=== PATIENT | female | born 1935 | race Caucasian/White ===

== ENCOUNTER 2019-03-13 11:56 | Outpatient (CLI) | payer MEDICARE ==
[~2019-03-13] VITALS: Ht 152.4 cm; Wt 56.2 kg
[2019-03-13 12:07] VITALS: BP 121/53
[2019-03-13 12:36] LABS: BASOPHILS % (AUTO) 1 % (0-10); EOSINOPHILS # (AUTO) 0.2 10^3/uL (0.0-0.3); EOSINOPHILS % (AUTO) 3 % (0-10); HEMATOCRIT 33 % (35-52); HEMOGLOBIN 10.7 G/DL (11.5-16.0); LYMPHOCYTES # (AUTO) 1.9 X 10^3 (1.0-4.0); LYMPHOCYTES % (AUTO) 36 % (12-44); MEAN CORPUSCULAR HEMOGLOBIN 34 PG (25-34); MEAN CORPUSCULAR HGB CONC 33 G/DL (32-36); MEAN CORPUSCULAR VOLUME 102 FL (80-99); MEAN PLATELET VOLUME 9.9 FL (7.4-10.4); MONOCYTES # (AUTO) 0.3 X 10^3 (0.0-1.0); MONOCYTES % (AUTO) 7 % (0-12); NEUTROPHILS # (AUTO) 2.8 X 10^3 (1.8-7.8); NEUTROPHILS % (AUTO) 54 % (42-75); PLATELET COUNT 206 10^3/uL (130-400); RED CELL DISTRIBUTION WIDTH 13.1 % (10.0-14.5); WHITE BLOOD COUNT 5.2 10^3/uL (4.3-11.0)
[2019-03-13] MEDS ORDERED: LEVO50TA6 PO (12:39)
[2019-03-13] MEDS ORDERED: OMEP20CA13 PO (12:39)
[2019-03-13] MEDS ORDERED: ASPI-586 PO (12:39)
[2019-03-13] MEDS ORDERED: FERR325T18 PO (12:39)
[2019-03-13] MEDS ORDERED: AMLO5TAB9 PO (12:39)
[2019-03-13] MEDS ORDERED: METO-333 PO (12:39)
[2019-03-13] MEDS ORDERED: CITA40TA11 PO (12:39)
[2019-03-13] MEDS ORDERED: ATOR10TA66 PO (12:39)
[2019-03-13 12:58] LABS: CALCIUM 9.3 MG/DL (8.5-10.1); CREATININE SERUM 1.4 MG/DL (0.60-1.30); POTASSIUM 4.5 MMOL/L (3.6-5.0)
== END 2019-03-13 12:30 | disposition home or self-care (01) ==
LOC: PREOP 11:56
PROVIDERS: ATTEND Otolaryngology Otolaryngology/Facial Plastic Surgery
DX: Z01.818 Encounter for other preprocedural examination (principal); C44.91 Basal cell carcinoma of skin, unspecified
CPT/HCPCS: 36415; 80048; 85025; 87081; 93005

== ENCOUNTER → 2020-11-26 | Outpatient (CLI) | payer MEDICARE ==
[~2020-11-26] MED LIST: AMLO-250 PO; ASPI-586 PO; ATOR10TA66 PO; CITA40TA11 PO; FERR325T18 PO; LEVO50TA6 PO; METO-333 PO; OMEP20CA18 PO
--- NOTE | 2020-11-26 18:05 | Diagnostic Imaging Report ---
EXAM: LUMBAR SPINE 2 OR 3 VIEW INDICATION: Chronic low back pain. COMPARISON: None. FINDINGS: There are 5 lumbar-type vertebral bodies. Grade 1 anterolisthesis of L5 on S1. Vertebral body heights preserved. Mild scattered degenerative endplate changes and facet arthropathy. No fractures are identified. The visualized pelvis is intact. Nonspecific bowel gas pattern in the [id number]. IMPRESSION: 1. Mild spondylotic changes are greatest at L5-S1 where there is grade 1 anterolisthesis. 2. No acute radiographic findings in the lumbar spine. Dictated by: Dictated on workstation # [id number]
== END ==
LOC: RAD FS 15:24
PROVIDERS: ATTEND Nurse Practitioner Family
DX: M51.37 Other intervertebral disc degeneration, lumbosacral region (principal); M43.17 Spondylolisthesis, lumbosacral region
CPT/HCPCS: 72100

== ENCOUNTER → 2021-04-24 | Outpatient (CLI) | payer MEDICARE ==
[~2021-04-24] MED LIST changes: +CATHETER FLUSH 10 ML SYR IV PRN; +REGADENOSON 0.4 MG/5 ML SYR (LEXISCAN) IV ONE
[2021-04-24 13:26] VITALS: BP 181/59
--- NOTE | 2021-04-24 17:04 | NUCLEAR STRESS TEST ---
TREADMILL NUCLEAR STRESS TEST Date of procedure: 04/24/2021. Primary care provider: Naya Madison APRN. Admitting physician: Dante Gay Jr., MD. INDICATION: Coronary artery disease. BASELINE ELECTROCARDIOGRAM: Sinus rhythm with nonspecific intraventricular conduction delay and inferolateral ST-T wave changes, consider ischemia STRESS TEST PROCEDURE: The patient was exercised for a total of 2 minutes and 25 seconds of the standard Jarrett protocol achieving a maximum MET level of 3.6. The resting heart rate was 72 bpm and the peak heart rate was 125 bpm, which represents 91% of the maximum predicted heart rate. The resting blood pressure was 200/91 mmHg and the peak blood pressure was 238/71 mmHg. This represents a normal heart rate and a hypertensive blood pressure response to exercise with resting hypertension. The test was stopped due to target heart rate achieved. There was no chest discomfort during the test. There were no arrhythmias during the test. The stress electrocardiogram was indeterminate due to the baseline abnormalities. The patient exhibited good exercise capacity for age. NUCLEAR PROCEDURE: The patient was administered 10.6 mCi of intravenous technetium 99m Tetrofosmin at rest for the rest images. The patient was subsequently administered 32 point mCi of intravenous technetium 99 M Tetrofosmin at peak stress for the stress images. Following an appropriate wait after each injection, imaging was obtained. The images were subsequently processed and reformatted in the usual views. Gated imaging was obtained. The image quality was adequate but with some gastrointestinal and motion artifacts. CT attenuation correction was used as a adjunct to standard imaging. Both the corrected and uncorrected images were reviewed for interpretation. NUCLEAR RESULTS: There was normal myocardial perfusion in all segments without evidence of infarction or ischemia. There was normal left ventricular chamber size with an end-diastolic volume of 21 mL and an end-systolic volume of 5 mL. There was no evidence of transient ischemic dilatation. The TID ratio was 1.03. There was normal wall motion in all segments with a calculated ejection fraction of 75%. IMPRESSION: 1. Normal heart rate and a hypertensive blood pressure response to exercise with resting hypertension. 2. There was no chest discomfort or arrhythmias during the test. 3. The stress electrocardiogram was indeterminate due to the baseline abnormalities. 4. The patient exhibited good exercise capacity for age at 2 minutes and 25 seconds of the Jarrett protocol. 5. There was normal myocardial perfusion in all segments without evidence of infarction or ischemia. 6. There was normal wall motion in all segments with a calculated ejection fraction is 75%. Certain portions of this document may have been dictated utilizing voice recognition technology. Inherent to this technology, typographical and grammatical errors may exist. As much as I am diligent to identify and correct these mistakes, some errors may remain in the document. DANTE GAY JR, MD Apr 24, 2021 17:04
== END ==
LOC: CARD 12:11
PROVIDERS: ATTEND Internal Medicine Cardiovascular Disease
DX: I25.10 Atherosclerotic heart disease of native coronary artery without angina pectoris (principal)
CPT/HCPCS: 78452; 93017; A9502

== ENCOUNTER → 2021-05-02 | Outpatient (CLI) | payer MEDICARE ==
[~2021-05-02] MED LIST changes: -CATHETER FLUSH 10 ML SYR IV PRN; -REGADENOSON 0.4 MG/5 ML SYR (LEXISCAN) IV ONE
--- NOTE | 2021-05-02 18:27 | Diagnostic Imaging Report ---
INDICATION: NONRHEUMATIC MITRAL VALVE INSUFFICIENCY. TECHNIQUE: Two view chest 2:21 PM CORRELATION STUDY: None FINDINGS: Poststernotomy change. Heart size and vasculature within normal limits. Density in the retrocardiac region likely reflects a sizable esophageal hernia. Chronic appearing change about the lung parenchyma with mildly prominent interstitial markings and also mild hyperinflation. No infiltrate. Mild compression deformity likely nonacute mid thoracic spine slight accentuated thoracic kyphosis. IMPRESSION: 1. Negative for acute abnormality of the chest. Poststernotomy change. 2. Probable prominent esophageal hernia. 3. Hyperinflated lung nicholson which are otherwise clear. Dictated by: Dictated on workstation # [id number]
== END ==
LOC: RAD 13:57
PROVIDERS: ATTEND Internal Medicine Cardiovascular Disease
DX: I34.0 Nonrheumatic mitral (valve) insufficiency (principal); R91.8 Other nonspecific abnormal finding of lung field
CPT/HCPCS: 71046

== ENCOUNTER 2021-07-07 05:39 | Outpatient (CLI) | payer MEDICARE ==
[~2021-07-07] VITALS: Ht 154.9 cm; Wt 54.4 kg
[~2021-07-07 05:39] MED LIST changes: -CITA40TA11 PO; +CITA40TA13 PO
== END 2021-07-07 15:51 | disposition home or self-care (01) ==
LOC: PREOP 05:39
PROVIDERS: ATTEND Surgery
DX: Z01.818 Encounter for other preprocedural examination (principal)

== ENCOUNTER 2021-07-14 07:23 | Day surgery (SDC) | payer MEDICARE ==
[~2021-07-14] VITALS: Ht 154 cm; Wt 54.0 kg
--- OUTSIDE RECORDS SUMMARY | 2021-07-14 07:35 | XMS REPORT | Clinical Summary ---
Author Author [facility] Address Unknown Phone Unavailable Care Team Providers Care Decision Unit Rn Name Role Phone Gerson Limon MD PCP Allergies Comments Active Allergy Reactions Severity Noted Date Cefaclor Hives 07/18/2015 Penicillins Hives 07/18/2015 Sulfa Antibiotics Hives 07/18/2015 Makes patient sleepy Hydrocodone-Acetaminophen Other (See 07/18/2015 Comments) Medications End Date Status Medication Sig Dispensed Refills Start Date Active aspirin 81 MG EC tablet Take 81 mg by 0 mouth daily. Active calcium carbonate (TUMS) Take 1 tablet 0 500 MG chewable tablet by mouth 3 (three) times daily. Active multivitamin Take 1 tablet 0 (THERAPEUTIC) TABS tablet by mouth daily. Active fish oil (OMEGA 3) 1000 Take 1,000 mg 0 MG CAPS by mouth daily. Active vitamin C (ASCORBIC ACID) Take 500 mg 0 500 MG tablet by mouth daily. Active nitroglycerin (NITROSTAT) Place 0.4 mg 0 0.4 MG SL tablet under the tongue every 5 (five) minutes as needed for Chest pain. Active oxybutynin (OXYTROL) 3.9 Place 1 patch 0 MG/24HR onto the skin twice a week. Active atorvastatin (LIPITOR) 10 Take 10 mg by 0 MG tablet mouth daily. Active polyethylene glycol Take 17 g by 0 (MIRALAX) packet mouth daily. Active citalopram (CELEXA) 40 MG Take 40 mg by 0 tablet mouth daily. Active omeprazole (PRILOSEC) 20 Take 20 mg by 0 MG capsule mouth daily. Active tramadol-acetaminophen Take 1 tablet 0 (ULTRACET) 37.5-325 MG by mouth per tablet every 6 (six) hours as needed for Moderate Pain. Active Acyclovir (ZOVIRAX) 5 % Apply 5 % 0 CREA topically. Apply cream 6 times a day as needed. Active lidocaine (LIDODERM) 5 % Place 1 patch 0 onto the skin daily. Active amLODIPine (NORVASC) 5 MG 0 tablet 6 Active levothyroxine (SYNTHROID, Take 75 mcg 0 LEVOTHROID) 75 MCG tablet by mouth 6 daily. 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 Pulse - - Temperature - - Respiratory Rate - - Oxygen Saturation - - Inhaled Oxygen Concentration 51.9 kg (114 lb 8 oz) 12/16/2015 12:01 AM CDT Weight 151.1 cm (4' 11.5") 12/16/2015 12:01 AM CDT Height 22.74 12/16/2015 12:01 AM CDT Body Mass Index Plan of Treatment Health Maintenance Due Date Last Done Comments COVID-19 Vaccine (1) 1947 Annual Wellness Visit 10/24/1953 DTaP,Tdap,and Td Vaccines 1954 (1 - Tdap) Zoster Vaccine (1 of 2) 10/24/1987 Pneumo-Vaccine: 65+Yrs (1 2002 of 1 - PPSV23) DEXA Scan 06/14/2020 06/14/2015 Influenza Vaccine (#1) 2021 HIB Vaccines Aged Out No longer eligible based on patient's age to complete this topic IPV Vaccines Aged Out No longer eligible based on patient's age to complete this topic Meningococcal Vaccine Aged Out No longer eligib le based on patient's age to complete this topic Pneumo-Vaccine: Peds (0-5 Aged Out No longer el igible based on patient's age to Yrs) & At-Risk Patients complete this topic (6-64 Yrs) Rotavirus Vaccines Aged Out No longer eligible based on patient's age to complete this topic Results Not on filefrom Last 3 Months Insurance Type Payer Benefit Subscriber ID Effective Phone Address Plan / Dates Group Medicare MEDICARE MEDICARE [id number] [address] [place] [address] Advance Directives For more information, please contact: [phone] 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
--- OUTSIDE RECORDS SUMMARY | 2021-07-14 07:35 | XMS REPORT | Clinical Summary ---
Author Author [facility] Organization [facility] Address Unknown Phone Unavailable Care Team Providers Care Trolley Collector Name Role Phone PCP Unavailable Source Comments Some departments are not documenting in the electronic medical record. If you d o not see the information that you expected, contact Release of Information in [facility] Information Management department at [phone] for further assistan ce in locating additional records.[facility] Allergies Not on File Medications Not on file Active Problems Not on file Social History Date Tobacco Use Types Packs/Day Years Used Never Assessed Sex Assigned at Date Recorded Not on file Last Filed Vital Signs Reading Time Taken Comments Vital Sign 130/80 05/06/2012 4:29 PM CDT Blood Pressure - - Pulse - - Temperature - - Respiratory Rate - - Oxygen Saturation - - Inhaled Oxygen Concentration 50.3 kg (111 lb) 05/06/2012 4:29 PM CDT Weight 152.4 cm (5') 05/06/2012 4:29 PM CDT Height 21.68 05/06/2012 4:29 PM CDT Body Mass Index Plan of Treatment Health Maintenance Due Date Last Done Comments DTAP/TDAP VACCINES (1 - 10/24/1953 Tdap) PHYSICAL (COMPREHENSIVE) 10[birth year]24/1955 EXAM SHINGLES RECOMBINANT 10/24/1987 VACCINE (1 of 2) OSTEOPOROSIS 2002 SCREENING/MONITORING PNEUMONIA (PPSV23) 2002 VACCINE (1 of 1 - PPSV23) INFLUENZA VACCINE 02/02/2021 Results Not on filefrom Last 3 Months Advance Directives 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
--- OUTSIDE RECORDS SUMMARY | 2021-07-14 07:35 | XMS REPORT | Clinical Summary ---
Author [facility] Address Unknown Phone Unavailable Care Team Providers Care Harness Maker Name Role Phone PCP Unavailable Allergies Not on File Medications Not on file Active Problems Not on file Social History Date Tobacco Use Types Packs/Day Years Used Never Assessed Sex Assigned at Date Recorded Not on file Last Filed Vital Signs Not on file Plan of Treatment Not on file Results Not on filefrom Last 3 Months
[2021-07-14] MEDS ORDERED: LACTATED RINGERS 1,000 ML IV ONE (07:39)
[2021-07-14] MEDS ORDERED: LACTATED RINGERS 1,000 ML IV STA (07:50)
[2021-07-14 07:55] VITALS: BP 135/67
[2021-07-14] MEDS ORDERED: HURRICAINE EXT TUBE (BENZOCAINE) XX PRN (08:00)
[2021-07-14] MEDS ORDERED: PROPOFOL INJECTION 50 ML IV ONE (08:22)
[2021-07-14 09:09] VITALS: BP 119/56
--- NOTE | 2021-07-14 09:13 | Progress Note-Post Operative ---
Post-Operative Progess Note Surgeon (s)/Rail Gang Supervisor (s) Surgeon KRISTOFER JIMENEZ DO Rail Gang Supervisor: CHARLES Hill Pre-Operative Diagnosis GERD, screening Post-Operative Diagnosis Large hiatal hernia Gastritis Rectal polyp Diverticula int hemorrhoids Procedure & Operative Findings Date of Procedure 07/14/21 Procedure Performed/Findings EGD with biopsy Colonoscopy with hot bx PROCEDURE NOTE: After informed consent was obtained, the patient was brought to the endoscopy suite, placed in bed in left lateral decubitus position. She was administered IV sedation by the FIXTURE DESIGNER who then monitored vitals the entire time, heart rate, blood pressure and pulse ox and the scope was inserted down the mouth through the esophagus into the stomach. Pushed into the stomach and then past the antrum into the duodenum; duodenum looked good. Pulled back and did a biopsy of antrum, noted some mild Gastritis. Then retroflexed the scope, saw a very large hiatal hernia; looked like 1/3 of stomach above diaphragm. Took a picture of this and then pulled the scope into the GE junction, took another picture of the hiatal hernia and then did a biopsy of the GE junction. Pushed the scope back into the stomach, suctioned all the air out of the stomach. At this point pulled the scope up the esophagus and out the mouth. Switched camera, switched gloves, went down below, started the colonoscopy. Pushed all the way into about 150 cm to get all the way to cecum, took a picture of the appendiceal orifice and noted the ileocecal valve. On the way in had noted multiple diverticula and had taken a picture; most were on the left side but had some on the right. Started to slowly withdrew the scope, insufflating to look circumferentially at the abdalla starting in the cecum, up the ascending colon to the hepatic flexure, then down the transverse colon, splenic flexure, into the descending colon, down into the sigmoid and finally into the rectum. Retroflexed in the rectal vault, saw some minimal internal hemorrhoids and what looked like a polyp; took a picture of this. Then elected to do a hot biopsy of this polyp, did two biopsies The patient tolerated the procedure and she recovered in the endoscopy suite. Anesthesia Type IV sedation by FIXTURE DESIGNER Estimated Blood Loss Estimated blood loss (mL): scant Specimens/Packing Specimens Removed antral bx GE jxn bx Rectal polyp bx x 2 KRISTOFER JIMENEZ DO Jul 14, 2021 09:13
[2021-07-14 09:14] VITALS: BP 127/98
--- NOTE | 2021-07-14 09:14 | Endoscopy Discharge Instruct ---
Endo Procedure/Findings Findings 1.: Gastritis 2.: Hiatal Hernia 3.: Polyp 4.: Diverticulosis, Internal Hemorrhoids Discharge Instructions - Activity: You might feel a little sleepy until tomorrow. This is due to the medicine you received to relax you. Until tomorrow, you should: NOT drive a car, operate machinery or power tools. NOT drink any alcoholic beverages. NOT make any important decisions or sign importortant papers. Do not return to work until tomorrow, unless otherwise instructed. Resume previous activities tomorrow. Diet: Start by taking liquids. If you tolerate liquids, advance to solid food. 1.: EGD in 1 year 2.: Colonscopy in 5 years Notify Physician - If you experience excessive bleeding, unusual abdominal pain, fever, or chest pain, contact your doctor immediately. KRISTOFER JIMENEZ DO Jul 14, 2021 09:14
[2021-07-14 09:19] VITALS: BP 133/60
[2021-07-14 09:45] VITALS: BP 133/60
[2021-07-14 09:50] VITALS: BP 140/64
--- NOTE | 2021-07-14 10:44 | Anesthesia-General Post-Op ---
MAC Patient Condition Mental Status/LOC: Same as Preop Cardiovascular: Satisfactory Nausea/Vomiting: Absent Respiratory: Satisfactory Pain: Controlled Complications: Absent Post Op Complications Complications None Follow Up Care/Instructions Patient Instructions None needed. Anesthesiology Discharge Order Discharge Order Patient is doing well, no complaints, stable vital signs, no apparent adverse anesthesia problems. No complications reported per nursing. JENN KOEHLER CRNA Jul 14, 2021 10:44
== END 2021-07-14 10:02 | disposition home or self-care (01) ==
LOC: ENDO 07:23
PROVIDERS: ATTEND Surgery
DX: Z12.11 Encounter for screening for malignant neoplasm of colon (principal); K29.70 Gastritis, unspecified, without bleeding; K44.9 Diaphragmatic hernia without obstruction or gangrene; D12.8 Benign neoplasm of rectum; K57.30 Diverticulosis of large intestine without perforation or abscess without bleeding; K64.8 Other hemorrhoids; K21.9 Gastro-esophageal reflux disease without esophagitis; I10 Essential (primary) hypertension; F32.A Depression, unspecified; I25.10 Atherosclerotic heart disease of native coronary artery without angina pectoris; Z95.1 Presence of aortocoronary bypass graft; Z79.899 Other long term (current) drug therapy

== ENCOUNTER → 2022-01-20 | Outpatient (CLI) | payer MEDICARE ==
[2022-01-20 15:36] LABS: POTASSIUM 4.8 MMOL/L (3.6-5.0); SODIUM 136 MMOL/L (135-145)
[2022-01-20 15:37] LABS: ALANINE AMINOTRANSFERASE 10 U/L (0-55); ALBUMIN 4.7 GM/DL (3.2-4.5); ALKALINE PHOSPHATASE 80 U/L (40-136); BILIRUBIN,TOTAL 0.4 MG/DL (0.1-1.0); BUN/CREATININE RATIO 16; CALCIUM 9.7 MG/DL (8.5-10.1); CARBON DIOXIDE 26 MMOL/L (21-32); CHLORIDE 100 MMOL/L (98-107); CREATININE SERUM 1.47 MG/DL (0.60-1.30); GFR ESTIMATED 35; GLUCOSE 103 MG/DL (70-105); TOTAL PROTEIN 7.5 GM/DL (6.4-8.2)
[2022-01-20 23:54] LABS: TRIGLYCERIDES 153 MG/DL (<150); VLDL CHOLESTEROL 31 MG/DL (5-40)
[2022-01-20 23:59] LABS: CHOLESTEROL 155 MG/DL (< 200)
[2022-01-21] LABS: HDL CHOLESTEROL 54 MG/DL (40-60)
== END ==
LOC: LAB FS 14:46
PROVIDERS: ATTEND Registered Nurse Emergency
DX: E78.5 Hyperlipidemia, unspecified (principal); E03.9 Hypothyroidism, unspecified; I10 Essential (primary) hypertension
CPT/HCPCS: 36415; 80053; 80061; 84443

== ENCOUNTER → 2022-02-09 | Outpatient (CLI) | payer MEDICARE ==
[2022-02-09 11:29] LABS: BASOPHILS # (AUTO) 0.1 10^3/uL (0.0-0.1); BASOPHILS % (AUTO) 1 % (0-10); EOSINOPHILS # (AUTO) 0.3 10^3/uL (0.0-0.3); EOSINOPHILS % (AUTO) 4 % (0-10); HEMATOCRIT 35 % (35-52); HEMOGLOBIN 11.8 g/dL (11.5-16.0); LYMPHOCYTES # (AUTO) 2.5 10^3/uL (1.0-4.0); LYMPHOCYTES % (AUTO) 34 % (12-44); MEAN CORPUSCULAR HEMOGLOBIN 33 pg (25-34); MEAN CORPUSCULAR HGB CONC 33 g/dL (32-36); MEAN CORPUSCULAR VOLUME 98 fL (80-99); MEAN PLATELET VOLUME 9.8 fL (9.0-12.2); MONOCYTES # (AUTO) 0.5 10^3/uL (0.0-1.0); MONOCYTES % (AUTO) 7 % (0-12); NEUTROPHILS % (AUTO) 54 % (42-75); PLATELET COUNT 214 10^3/uL (130-400); WHITE BLOOD COUNT 7.3 10^3/uL (4.3-11.0)
== END ==
LOC: LAB FS 11:11
PROVIDERS: ATTEND Registered Nurse Emergency
DX: N32.81 Overactive bladder (principal); R53.83 Other fatigue
CPT/HCPCS: 36415; 85025

== ENCOUNTER → 2022-09-18 | Outpatient (CLI) | payer MEDICARE | LOC: CARD 12:00 | PROVIDERS: ATTEND Internal Medicine Cardiovascular Disease | DX: I25.10 Atherosclerotic heart disease of native coronary artery without angina pectoris (principal) | CPT/HCPCS: 93306 ==

== ENCOUNTER → 2022-10-21 | Outpatient (CLI) | payer MEDICARE ==
[~2022-10-21] VITALS: Ht 152 cm; Wt 51.0 kg
[~2022-10-21] MED LIST changes: +CATHETER FLUSH 10 ML SYR IVP PRN; +REGADENOSON 0.4 MG/5 ML SYR (LEXISCAN) IV ONE
[2022-10-21 13:09] VITALS: BP 180/80
--- NOTE | 2022-10-21 15:47 | Cardiology Stress Test Report ---
Stress Test Report Date of Procedure/Referring: Date of Procedure: Oct 21, 2022 PCP Subha Herrera Aprn Admitting Physician Admitting Physician: Attending Physician: Ginna Hawk MD Baseline Heart Rate: 56 Baseline Blood Pressure: Blood Pressure Systolic: 180 Blood Pressure Diastolic: 80 Baseline Vitals Vital Signs Date Time Temp Pulse Resp B/P (MAP) Pulse Ox O2 Delivery O2 Flow Rate FiO2 10/21/22 13:09 180/80 (113) Baseline EKG: Baseline EKG: NSR Summary After explaining the procedure to the patient, she signed a consent and then brought to the stress nuclear laboratory. Patient received 0.4 mg Lexiscan for stress test, ECG, heart rate and blood pressure were monitored continuously. Resting and stress dose of radio tracer were injected, imaging was acquired and reviewed in short axis, horizontal long axis and vertical long axis views. TID: 1.22 SSS: 5 SDS: 5 EF: 85 Patient was unable to exercise to achieve her target heart rate, test was converted to Lexiscan Myoview stress test Patient tolerated Lexiscan well Small left ventricle with transient ischemic dilatation 1.22 Breast attenuation with reversible ischemia involving the anterior apical segment and the apical segment of the anterior lateral wall Small left ventricle, gated images calculated ejection fraction 85% Copy Copies To 1: BLANCA SANTANA MD, BASHAR J MD Oct 21, 2022 15:46
== END ==
LOC: CARD 10:31
PROVIDERS: ATTEND Internal Medicine Cardiovascular Disease
DX: I25.10 Atherosclerotic heart disease of native coronary artery without angina pectoris (principal)
CPT/HCPCS: 78452; 93017; A9502

== ENCOUNTER 2022-10-28 10:48 | Day surgery (SDC) | payer MEDICARE ==
[~2022-10-28] VITALS: Ht 152.4 cm; Wt 52.2 kg
[2022-10-28] VITALS (10 sets, daily range): BP systolic 133–162; BP diastolic 56–76
[~2022-10-28 10:48] MED LIST changes: -CATHETER FLUSH 10 ML SYR IVP PRN; -REGADENOSON 0.4 MG/5 ML SYR (LEXISCAN) IV ONE
[2022-10-28] MEDS ORDERED: NS IV 1000 ML 1,000 ML ONE (10:56)
[2022-10-28] MEDS ORDERED: HEParin (CATH LAB) 2,000 ML IV ONE (10:56)
[2022-10-28] MEDS ORDERED: LIDOCAINE 1% INJ 20 ML VIAL ONE (10:56)
[2022-10-28] MEDS ORDERED: NS IV 1000 ML 1,000 ML IV SCH ×3 (11:00→13:45)
[2022-10-28 11:25] LABS: HEMATOCRIT 35 % (35-52); HEMOGLOBIN 11.4 g/dL (11.5-16.0); MEAN CORPUSCULAR HEMOGLOBIN 33 pg (25-34); MEAN CORPUSCULAR HGB CONC 32 g/dL (32-36); MEAN CORPUSCULAR VOLUME 102 fL (80-99); MEAN PLATELET VOLUME 10.4 fL (9.0-12.2); PLATELET COUNT 198 10^3/uL (130-400); WHITE BLOOD COUNT 7.3 10^3/uL (4.3-11.0)
[2022-10-28 11:26] LABS: BILIRUBIN,URINE NEGATIVE (NEGATIVE); CLARITY,URINE CLEAR; COLOR,URINE YELLOW; GLUCOSE, URINE (UA) NEGATIVE (NEGATIVE); KETONES,URINE NEGATIVE (NEGATIVE); LEUKOCYTE ESTERASE ,URINE 1+ (NEGATIVE); NITRITE,URINE NEGATIVE (NEGATIVE); PH,URINE 6.5 (5-9); PROTEIN,URINE NEGATIVE (NEGATIVE)
--- NOTE | 2022-10-28 11:35 | Diagnostic Imaging Report ---
CLINICAL INDICATION: Patient with abnormal stress test. EXAM: Portable chest x-ray upright view. COMPARISON: Chest x-ray dated 05/02/2021. FINDINGS: Lungs/pleura: Lungs are clear. There is no pneumothorax. There is no pleural effusion. Mediastinum: There is a prominent opacity in the lower mediastinal region which may represent a hiatal hernia. Pulmonary vasculature: Unremarkable. Heart: There is cardiomegaly. There are postop changes to the chest with sternotomy wires and mediastinal clips. Bones/extrathoracic soft tissue: Unremarkable. IMPRESSION: 1: There is no radiographic evidence of acute cardiopulmonary process. 2: There is cardiomegaly with no significant pulmonary vascular congestion. 3: Suspected hiatal hernia. Dictated by: Dictated on workstation # [id number]
[2022-10-28] MEDS ORDERED: MAGN400C PO (11:36)
[2022-10-28] MEDS ORDERED: MULT-1021 PO (11:36)
[2022-10-28] MEDS ORDERED: CITA20TA12 PO (11:36)
[2022-10-28] MEDS ORDERED: B12 PO (11:36)
[2022-10-28] MEDS ORDERED: NITR0.4T39 SL (11:36)
[2022-10-28] MEDS ORDERED: BETA15CR14 TP (11:36)
[2022-10-28] MEDS ORDERED: LOSA100T57 PO (11:36)
[2022-10-28 11:40] LABS: PROTHROMBIN TIME PATIENT 13.8 SEC (12.2-14.7)
[2022-10-28 11:47] LABS: BACTERIA,URINE FEW /HPF; RBC,URINE 0-2 /HPF
[2022-10-28 11:47] LABS: ALBUMIN 4.4 GM/DL (3.2-4.5); BILIRUBIN,TOTAL 0.3 MG/DL (0.1-1.0); CALCIUM 9.2 MG/DL (8.5-10.1); CREATININE SERUM 1.25 MG/DL (0.60-1.30); POTASSIUM 4.2 MMOL/L (3.6-5.0); TOTAL PROTEIN 7.4 GM/DL (6.4-8.2)
--- NOTE | 2022-10-28 12:15 | Cardiac Procedure Note-CS/ASA ---
Pre-Procedure Note Pre-Op Procedure Note Date of Available H&P: Oct 22, 2022 Date H&P Reviewed: Oct 28, 2022 Time H&P Reviewed: 12:15 History & Physical: H&P Reviewed, Patient Examed, No changes noted Pre-Operative Diagnosis: CAD Moderate Sedation PreProcedure Time 12:15 ASA Score 3 Airway Lungs Heart ASA score ASA 1: a normal healthy patient ASA 2: a patient with a mild systemic disease (mid diabetes, controlled hypertension, obesity ASA 3: a patient with a severe systemic disease that limits activity (angina, COPD, prior Myocardial infarction) ASA 4: a patient with an incapacitating disease that is a constant threat to life (CHF, renal failure) ASA 5: a moribund patient not expected to survive 24 hrs. (ruptured aneurysm) ASA 6: a declared brain- patient whose organs are being harvested. For emergent operations, add the letter E after the classification Mallampati Classification Grade 3 Sedation Plan Analgesia, Amnesia, Plan communicated to team members, Discussed options with patient/fam, Discussed risks with patient/fam The patient is an appropriate candidate to undergo the planned procedure, sedation, and anesthesia. The patient immediately re-assessed prior to indication. JOSE D ALTAMIRANO MD Oct 28, 2022 12:15
[2022-10-28] MEDS ORDERED: MIDAZOLAM 5 MG/5 ML (VERSED) VIAL ONE (12:21)
[2022-10-28] MEDS ORDERED: fentaNYL INJ 100 MCG/2 ML AMP ONE (12:21)
[2022-10-28] MEDS ORDERED: HEParin 1000 UNIT/ML (10ML VIAL) FOR BOLUS ONE (13:14)
--- NOTE | 2022-10-28 13:33 | Discharge Inst-Post CATH ---
Discharge Inst-CATH/EP Problems Reviewed?: Yes Post Cardiac Cath/EP D/C Inst Follow Up/Plan Appointment with Dr. Hawk's office in 2 to 4 weeks <b>CARDIAC CATH/EP PROCEDURE DISCHARGE INSTRUCTIONS</b> ACTIVITY * Go Home directly and rest. * Limit activity of the leg (or wrist if it was used) for 7 days including aer obics, swimming, jogging, bicycling, etc. * Restrict stair-climbing for 7 days if possible, if not, climb up with your non-cath leg, then bring together on the same step. * Avoid lifting, pushing, pulling or excessive movement of the affected extremi ty for 7 days. * Customary sexual activity may be resumed after 2 days-use caution not to use a position that strains or causes pain to the affected extremity. * No driving for 24 hours. * NO SMOKING. * Avoid straining for bowel movements for 7 days. * Gentle walking on level ground is allowed. * Returning to work will depend on the type of procedure and the results. Your doctor will discuss this with you. CALL YOUR DOCTOR FOR ANY OF THE FOLLOWING: *If bleeding from the puncture site occurs- Apply gentle pressure to site with clean cloth and call your doctor or EMS. * If a knot or lump forms under the skin, increases in size, or causes pain. * If bruising appears to be worsening or moving further down your leg instead of disappearing. * Temperature above 101 F. CARE OF YOUR GROIN INCISION; * Bruising or purple discoloration of the skin near the puncture site is common. * You may shower only, no bathtub bathing for 5 days. Be careful to avoid slipping as your leg may feel stiff. * If a closure device was used on your femoral artery, please see the attached guide regarding care of the device and your leg. * Leave dressing on FOR 24 hours. CARE OF YOUR WRIST INCISION; * Bruising or purple discoloration of the skin near the puncture site is common. * You may shower. * DO NOT submerge wrist. * Leave dressing on FOR 24 hours. JOSE D HAWK MD Oct 28, 2022 13:33
--- NOTE | 2022-10-28 13:39 | Cardiac Cath Report ---
Cardiac Cath Report Physician (s)/Chair Pad Maker (s) Physician JOSE D ALTAMIRANO MD Pre-Procedure Diagnosis Pre-Procedure Diagnosis: CAD Post-Procedure Note Procedure Start Date: Oct 28, 2022 Procedure Start Time: 13:34 Name of Procedure: Left heart catheterization IBARRA angiogram Aortic arch angiogram IFR to the circumflex artery Findings/Procedure Note PROCEDURE NOTE: 87-year-old lady with history of coronary artery disease, history of CABG, had an abnormal stress test, scheduled for cardiac catheterization possible PTCA. After explaining the procedure to the patient, all pros and cons were explained, all questions were answered. The patient signed the consent and then she was placed in the cardiac catheterization laboratory. Groin was prepped in SL fashion local anesthesia was used. Sheath placed in the right femoral artery. Quentin' right and left catheter were used to access the coronary system. Quentin right was prolapsed to the left ventricular cavity Quentin right was used to access the IBARRA and IBARRA angiogram was done No further vein grafts were noted Pigtail catheter was advanced to the aortic arch and aortic arch angiogram Patient received 5000 units of heparin, Quentin left guide was used, IFR wire was advanced into the circumflex artery and lesion was crossed. iFR through the lesion was 1.0. At the end of the procedure the sheath was removed. Closure device was deployed FINDINGS: Hemodynamics LV 115/9, end-diastolic pressure of 9 Aorta 129/45 mean of 74 ANATOMY: Left Main is free of obstructive disease Left Anterior Descending has 95% ostial lesion, the IBARRA to the LAD is patent with good flow distally Left Circumflex has 40 to 50% stenosis at the midportion, IFR across the lesion is 1.0 Right Coronary Artery is moderate in size dominant artery with no obstructive disease IBARRA angiogram showed a very small IBARRA with excellent flow in the LAD with small vessel disease distally Aortic arch angiogram done showing normal aortic arch, no dissection or aneurysm, normal origin of the brachiocephalic, left carotid and left subclavian arteries. CONCLUSION: Patent IBARRA to LAD, the ostium of the LAD has severe stenosis corrected by the IBARRA Mild to moderate disease in the mid circumflex artery with IFR 1.0 Otherwise nonobstructive disease in the coronary system with dominant right coronary artery Normal left ventricular end-diastolic pressure Normal aortic arch and great vessels of the neck DISCUSSION AND RECOMMENDATION: Abnormal stress test probably due to small vessel disease, medical therapy is recommended no intervention is needed Anesthesia Type: Conscious Sedation Estimated blood loss (mL): 15 ml Contrast Amount: 70 ml Total Radiation Dose: 179 mGy Post-Procedure Diagnosis Post-operative diagnosis: Chest pain Coronary artery disease Hypertension Hyperlipidemia JOSE D ALTAMIRANO MD Oct 28, 2022 13:39
[2022-10-28] MEDS ORDERED: PATIENT MAY USE OWN MEDS, ALL PO SCH (13:45)
== END 2022-10-28 18:05 ==
LOC: CATH 10:48 → SDC 14:15 → CATH 18:05
PROVIDERS: ATTEND Internal Medicine Cardiovascular Disease
DX: I25.10 Atherosclerotic heart disease of native coronary artery without angina pectoris (principal); E78.2 Mixed hyperlipidemia; I08.0 Rheumatic disorders of both mitral and aortic valves; I27.20 Pulmonary hypertension, unspecified; I65.23 Occlusion and stenosis of bilateral carotid arteries; I12.9 Hypertensive chronic kidney disease with stage 1 through stage 4 chronic kidney disease, or unspecified chronic kidney disease; N18.32 Chronic kidney disease, stage 3b; Z87.738 Personal history of other specified (corrected) congenital malformations of digestive system; Z95.5 Presence of coronary angioplasty implant and graft
CPT/HCPCS: 36221; 71045; 80053; 81000; 85027; 85610; 85730; 87081; 87088; 93459; 93571; C1760; C1769; C1887; 36415; 93005

== ENCOUNTER 2022-11-20 17:41 | Emergency (ER) | payer MEDICARE ==
[~2022-11-20] VITALS: Ht 152.4 cm; Wt 52.2 kg
[~2022-11-20 17:41] MED LIST changes: +B12 PO; +BETA15CR14 TP; +CITA20TA12 PO; +LOSA100T57 PO; +MAGN400C PO; +MULT-1021 PO; +NITR0.4T39 SL
[2022-11-20] MEDS ORDERED: NS IV 1000 ML 1,000 ML IV STA (17:53)
[2022-11-20 17:57] LABS: BASOPHILS % (AUTO) 1 % (0-10); EOSINOPHILS # (AUTO) 0.1 10^3/uL (0.0-0.3); EOSINOPHILS % (AUTO) 1 % (0-10); HEMATOCRIT 35 % (35-52); HEMOGLOBIN 11.6 g/dL (11.5-16.0); LYMPHOCYTES # (AUTO) 1.5 10^3/uL (1.0-4.0); LYMPHOCYTES % (AUTO) 23 % (12-44); MEAN CORPUSCULAR HEMOGLOBIN 33 pg (25-34); MEAN CORPUSCULAR HGB CONC 33 g/dL (32-36); MEAN CORPUSCULAR VOLUME 101 fL (80-99); MEAN PLATELET VOLUME 9.9 fL (9.0-12.2); MONOCYTES # (AUTO) 0.8 10^3/uL (0.0-1.0); MONOCYTES % (AUTO) 12 % (0-12); NEUTROPHILS # (AUTO) 4.1 10^3/uL (1.8-7.8); NEUTROPHILS % (AUTO) 62 % (42-75); PLATELET COUNT 180 10^3/uL (130-400); WHITE BLOOD COUNT 6.6 10^3/uL (4.3-11.0)
--- NOTE | 2022-11-20 18:04 | ED Syncope ---
General Chief Complaint: Dizziness/Syncope Stated Complaint: SYNCOPE,"DAZED" Source of Information: Patient, Old Records (Cardiology cath report from [facility], Dr. Hawk on 10/28/2022) History of Present Illness Date Seen by Provider: November 20, 2022 Time Seen by Provider: 17:42 Initial Comments 87-year-old female presenting with complaints of having a syncopal episode. She states she was in the bathroom straining to have a bowel movement because she has been constipated. She has not fainted or passed out while she was doing this and woke up on the floor. She was complaining of some pain in her head and her neck from laying on her right side on the floor. She states she has not been feeling well in the last few days and has been taking extra allergy medication. She also has a hiatal hernia that she feels has been flaring up. She denies having a fever, abdominal pain, shortness of breath, weakness or numbness in her arms or legs. She denies having pain with urination. She feels like she has been constipated. She was having some epigastric pain and nausea. She stated that she was nauseated while she was straining to try and have a bowel movement. She has had chills but again no fever. She denies having a cough or shortness of breath. She had an abnormal stress test that prompted a heart cath with Dr. Hawk on October 28, 2022. She was found to have patent bypass vessels with the heart cath and she had normal aortogram. Advised to have continued medical management of her conditions. Timing/Prior Episodes: No Prior History Symptoms Prior to Episode: Lightheadedness, Nausea Precipitating Factors: Sitting (straining to have Bowel Movement due to constipation) Loss of Consciousness: Unsure Current Symptoms: No Blurred Vision, No Diaphoresis, No Dizziness; Headache (when she woke up on the floor she has a generalized headache and neck pain); No Injury, No Lightheadedness, No Loss of Bladder Control, No Loss of Bowel Control, No Motionless; Nausea; No Pale, No Shallow/Rapid Breathing, No Weak/Absent Pulse, No Weakness Allergies and Home Medications Allergies Coded Allergies: Penicillins (Verified Allergy, Unknown, 03/13/19) Sulfa (Sulfonamide Antibiotics) (Verified Allergy, Unknown, 03/13/19) cefaclor (Verified Allergy, Unknown, 03/13/19) Patient Home Medication List Home Medication List Reviewed: Yes Aspirin (Aspir 81) 81 Mg Tablet.dr, 81 MG PO DAILY, (Reported) Entered as Reported by: PETERSON PROCTOR on 03/13/19 1239 Atorvastatin Calcium (Atorvastatin Calcium) 10 Mg Tablet, 10 MG PO HS, (Reported) Entered as Reported by: PETERSON PROCTOR on 03/13/19 1239 Betamethasone/Propylene Glyc (Betamethasone Dp Aug 0.05% Crm) 0.05 % Cream..g., 15 GM TP PRN, (Reported) Entered as Reported by: ROSALIE ECHEVERRIA on 10/28/22 1136 Citalopram Hydrobromide (Celexa) 20 Mg Tablet, 20 MG PO DAILY, (Reported) Entered as Reported by: ROSALIE ECHEVERRIA on 10/28/22 1136 Ferrous Sulfate (Ferrous Sulfate) 325 Mg Tablet, 325 MG PO Q48H, (Reported) Entered as Reported by: PETERSON PROCTOR on 03/13/19 1239 Levothyroxine Sodium (Levothyroxine Sodium) 50 Mcg Tablet, 50 MCG PO DAILY, (Reported) Entered as Reported by: PETERSON PROCTOR on 03/13/19 1239 Losartan Potassium (Losartan Potassium) 100 Mg Tablet, 100 MG PO DAILY, (Reported) Entered as Reported by: ROSALIE ECHEVERRIA on 10/28/22 1136 Magnesium Oxide (Magnesium) 400 Mg Magnesium Capsule, 400 MG PO HS, (Reported) Entered as Reported by: ROSALIE ECHEVERRIA on 10/28/22 1136 Metoprolol Tartrate (Metoprolol Tartrate) 25 Mg Tablet, 12.5 MG PO BID, (Reported) Entered as Reported by: PETERSON PROCTOR on 03/13/19 1239 Multivits-Min/Iron/FA/Lutein (Centrum Silver Women Tablet) 8 Mg Iron-400 Mcg-300 Mcg Tablet, 1 EACH PO DAILY, (Reported) Entered as Reported by: ROSALIE ECHEVERRIA on 10/28/22 1136 Nitrofurantoin Monohyd/M-Cryst (Macrobid 100 mg Capsule) 100 Mg Capsule, 1 TAB PO BID Prescribed by: ANDREA HUFFMAN on 11/20/22 1840 Nitroglycerin (Nitroglycerin) 0.4 Mg Tab.subl, 0.4 MG SL UD PRN for CHEST PAIN, (Reported) Entered as Reported by: ROSALIE ECHEVERRIA on 10/28/22 1136 Omeprazole (Omeprazole) 20 Mg Capsule.dr, 20 MG PO DAILY, (Reported) Entered as Reported by: PETERSON PROCTOR on 03/13/19 1239 [B12] , 1 TAB PO DAILY, (Reported) Entered as Reported by: ROSALIE ECHEVERRIA on 10/28/22 1136 Review of Systems Constitutional: chills; No diaphoresis, No dizziness, No fever; malaise (not felt well for last few days) EENTM: no symptoms reported Respiratory: see HPI Cardiovascular: see HPI Gastrointestinal: see HPI Genitourinary: No dysuria Musculoskeletal: see HPI, neck pain (generalized neck pain since waking up on floor) Skin: No change in color, No rash Psychiatric/Neurological: See HPI Past Mmbaneo-Joelek-Tnfjnr Hx Patient Social History Tobacco Use?: No Substance use?: No Alcohol Use?: No Pt feels they are or have been: No Immunizations Up To Date PED Vaccines UTD: No First/Initial COVID19 Vaccinat: YES Second COVID19 Vaccination Zechariah: YES Third COVID19 Vaccination Date: 07/04/21 Seasonal Allergies Seasonal Allergies: Yes Past Medical History Surgery/Hospitalization HX: open heart surgery, tonsillectomy, esophageal hernia, atrial fibrillation, Chronic renal insufficiency with GFR baseline around 40-50 in November 2022 Surgeries: Yes CABG, Hysterectomy, Tonsillectomy Respiratory: No Currently Using CPAP: No Currently Using BIPAP: No Cardiac: Yes (CABG sx) Coronary Artery Disease, Hypertension, Rheumatic Fever Neurological: No Genitourinary: Yes (PREVIOUSLY TOLD STAGE 3 KIDNEY DISEASE) Gastrointestinal: Yes Gastroesophageal Reflux, Chronic Constipation Musculoskeletal: Yes Arthritis Endocrine: Yes Hypothyroidsim HEENT: Yes (cataracts removed) Cancer: Yes Skin What Type of Treatment Did You: Surgical Intervention Psychosocial: Yes Depression Integumentary: Yes (left nasal bcc) Blood Disorders: Yes (anemia) Physical Exam Vital Signs Vital Signs - First Documented 11/20/22 17:53 Temp 36.8 Pulse 65 Resp 17 B/P (MAP) 154/75 (101) Pulse Ox 99 O2 Delivery Room Air Capillary Refill : Height, Weight, BMI Height: 5'0.00" Weight: 124lbs. 0.0oz. [id number]; 22.47 BMI Method: General Appearance: No Apparent Distress, WD/WN HEENT: PERRL/EOMI, Pharynx Normal, Other (Negative echeverria sign, negative raccoon sign, no CSF otorrhea, no CSF rhinorrhea) Neck: Full Range of Motion, Supple, Tender Lateral (Complains of pain with lateral palpation bilaterally.); No Tender Midline Cardiovascular: Regular Rate, Rhythm, Normal Peripheral Pulses Respiratory: Chest Non Tender, Lungs Clear, Normal Breath Sounds, No Accessory Muscle Use, No Respiratory Distress Gastrointestinal: Normal Bowel Sounds, No Pulsatile Mass, Non Tender, Soft Extremities: Normal Capillary Refill, Normal Inspection, Normal Range of Motion, Non Tender, No Calf Tenderness, No Pedal Edema Neurologic/Psychiatric: Alert, Oriented x3, No Motor/Sensory Deficits, Normal 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, 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 Norm as Tested Cranial Nerves: Normal Speech, PERRL, Hearing Deficit (L) (Chronically hard of hearing), Hearing Deficit (R) (Chronically hard of hearing) Coordination/Gait: Normal Gait Motor/Sensory: No Motor Deficit, No Sensory Deficit Skin: Normal Color, Warm/Dry Progress/Results/Core Measures Results/Orders Lab Results Laboratory Tests Test 11/20/22 17:50 11/20/22 18:00 Range/Units White Blood Count 6.6 4.3-11.0 10^3/uL Red Blood Count 3.49 L 3.80-5.11 10^6/uL Hemoglobin 11.6 11.5-16.0 g/dL Hematocrit 35 35-52 % Mean Corpuscular Volume 101 H 80-99 fL Mean Corpuscular Hemoglobin 33 25-34 pg Mean Corpuscular Hemoglobin Concent 33 32-36 g/dL Red Cell Distribution Width 13.0 10.0-14.5 % Platelet Count 180 130-400 10^3/uL Mean Platelet Volume 9.9 9.0-12.2 fL Immature Granulocyte % (Auto) 1 % Neutrophils (%) (Auto) 62 42-75 % Lymphocytes (%) (Auto) 23 12-44 % Monocytes (%) (Auto) 12 0-12 % Eosinophils (%) (Auto) 1 0-10 % Basophils (%) (Auto) 1 0-10 % Neutrophils # (Auto) 4.1 1.8-7.8 10^3/uL Lymphocytes # (Auto) 1.5 1.0-4.0 10^3/uL Monocytes # (Auto) 0.8 0.0-1.0 10^3/uL Eosinophils # (Auto) 0.1 0.0-0.3 10^3/uL Basophils # (Auto) 0.0 0.0-0.1 10^3/uL Immature Granulocyte # (Auto) 0.0 0.0-0.1 10^3/uL Prothrombin Time 13.2 12.2-14.7 SEC INR Comment 1.0 0.8-1.4 Activated Partial Thromboplast Time 23 L 24-35 SEC Sodium Level 135 135-145 MMOL/L Potassium Level 4.4 3.6-5.0 MMOL/L Chloride Level 95 L 98-107 MMOL/L Carbon Dioxide Level 28 21-32 MMOL/L Anion Gap 12 5-14 MMOL/L Blood Urea Nitrogen 22 H 7-18 MG/DL Creatinine 1.17 0.60-1.30 MG/DL Estimat Glomerular Filtration Rate 46 BUN/Creatinine Ratio 19 Glucose Level 87 70-105 MG/DL Calcium Level 9.8 8.5-10.1 MG/DL Corrected Calcium 8.5-10.1 MG/DL Magnesium Level 2.5 H 1.6-2.4 MG/DL Total Bilirubin 0.3 0.1-1.0 MG/DL Aspartate Amino Transf (AST/SGOT) 24 5-34 U/L Alanine Aminotransferase (ALT/SGPT) 12 0-55 U/L Alkaline Phosphatase 111 40-136 U/L Troponin I < 0.30 <0.30 NG/ML Pro-B-Type Natriuretic Peptide 596.6 H <450.0 PG/ML Total Protein 7.6 6.4-8.2 GM/DL Albumin 4.6 H 3.2-4.5 GM/DL Lipase 45 8-78 U/L Urine Color DARK YELLOW Urine Clarity CLOUDY Urine pH 6.0 5-9 Urine Specific [place] 1.015 L 1.016-1.022 Urine Protein NEGATIVE NEGATIVE Urine Glucose (UA) NEGATIVE NEGATIVE Urine Ketones TRACE H NEGATIVE Urine Nitrite POSITIVE H NEGATIVE Urine Bilirubin 1+ H NEGATIVE Urine Urobilinogen 2.0 < = 1.0 MG/DL Urine Leukocyte Esterase 1+ H NEGATIVE Urine RBC (Auto) TRACE-I H NEGATIVE Urine RBC NONE /HPF Urine WBC >100 H /HPF Urine Squamous Epithelial Cells 10-25 H /HPF Urine Crystals NONE /LPF Urine Bacteria LARGE H /HPF Urine Casts NONE /LPF Urine Mucus NEGATIVE /LPF Urine Culture Indicated YES My Orders Orders - ANDREA HUFFMAN MD Cbc With Automated Diff (11/20/22 17:51) Magnesium (11/20/22 17:51) Chest 1 View Ap/Pa Only (11/20/22 17:51) Ekg Tracing (11/20/22 17:51) Comprehensive Metabolic Panel (11/20/22 17:51) Protime With Inr (11/20/22 17:51) Partial Thromboplastin Time (11/20/22 17:51) O2 (11/20/22 17:51) Monitor-Rhythm Ecg Trace Only (11/20/22 17:51) Ed Iv/Invasive Line Start (11/20/22 17:51) Lipase (11/20/22 17:51) Troponin I Fs (11/20/22 17:51) Probnp Fs (11/20/22 17:51) Ct Head/Cervical Spine Wo (11/20/22 17:51) Abdomen (Kub) 1 View (11/20/22 17:51) Ua Culture If Indicated (11/20/22 17:51) Ns Iv 1000 Ml (Sodium Chloride 0.9%) (11/20/22 17:53) Urine Culture (11/20/22 18:00) Nitrofurantoin Capsule,Macro (Macrobid C (11/20/22 18:19) Vital Signs/I&O 11/20/22 11/20/22 17:53 18:48 Temp 36.8 Pulse 65 64 Resp 17 17 B/P (MAP) 154/75 (101) 132/78 Pulse Ox 99 97 O2 Delivery Room Air Room Air Progress Progress Note #1: Progress Note Potential life-threatening diagnosis of myocardial infarction, acute coronary syndrome, stroke, intracranial hemorrhage, intracranial mass, aortic dissection, cardiac dysrhythmia, vasovagal syncope, cardiogenic syncope, dehydration. Obtain peripheral IV access and send labs for complete blood count, comprehensive metabolic profile, coagulation factors, magnesium, lipase, troponin, proBNP. Obtain urine and send for urinalysis. 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 Obtain electrocardiogram to further evaluate her heart rate and rhythm. 1 view chest x-ray to look for possible pathology in the chest to contribute to her complaint of epigastric pain and syncope. CT scan of the head and cervical spine since she was complaining of generalized headache and neck pain after waking up on the floor. Plain 1 view x-ray of the abdomen to look for constipation since she reports having decreased bowel movements and having to strain to try and pass a bowel movement today when she had her syncopal episode. Progress Note #2: Time: 18:14 Progress Note Complete blood count does not show an elevated white blood cell count as it was at 6.6. Hemoglobin is at the lower limit of normal at 11.6. Her coagulation factors were normal with INR of 1 and did not show evidence of coagulopathy. Her urinalysis had a specific gravity of 1.015 with trace ketones, positive nitrates, 1+ leukocyte esterase, greater than 100 white blood cells, large amount of bacteria. Will start patient on Macrobid for UTI pending culture to see if she needed a different antibiotic. Progress Note #3: Time: 18:22 Progress Note Comprehensive metabolic panel showed no acute significant electrolyte imbalance to account for her symptoms. She had a creatinine of 1.17 and GFR 45. This is consistent with her prior labs. Her magnesium was high side of normal at 2.5. Her troponin was negative at less than 0.3. Lipase was normal at 45. On my personal interpretation and review of the 1 view chest x-ray she has no acute infiltrate. She continues to have an area that appears to be a hiatal hernia similar to x-ray from October 28, 2022. On my personal interpretation and review of her 1 view x-ray of the abdomen shows increased stool and gas without evidence of free air or obstruction. On my review of the CT head and cervical spine I did not appreciate any acute infiltrate or hemorrhage or fractures. Progress Note #4: Time: 18:38 Progress Note I reviewed the radiologist report on the CT scan of the head and cervical spine were they did not see any acute fractures or intracranial hemorrhage. Will proceed with treating the UTI and plan on discharge to home. Encourage fluids and hydration. Encouraged her to continue taking the antibiotics until gone. If the culture shows she needed a different antibiotic than she will get a call in 2 to 3 days when that comes back. Initial ECG Impression Date: November 20, 2022 Initial ECG Impression Time: 17:52 Initial ECG Rate: 60 Initial ECG Rhythm: Normal Sinus Initial ECG Comparisson: Unchanged (10/28/2022) Comment On my personal interpretation and review if she has an electrocardiogram that shows sinus rhythm with heart rate 60 bpm. DC interval [address] elevation. QT interval 420 ms with QTc interval 421 ms. Left atrial enlargement. Overall appears similar to tracing from 10/28/2022. Diagnostic Imaging Diagonstic Imaging: Xray Plain Films/CT/US/NM/MRI: chest Comments [facility] [place], [place] NAME: FLY MURILLO [facility] REC#: [id number] PT STATUS: REG ER : 1935 PHYSICIAN: ANDREA HUFFMAN MD ADMIT DATE: 11/20/22/ER FS Draft Date of Exam:11/20/22 CHEST 1 VIEW AP/PA ONLY INDICATION: Syncopal episode, epigastric pain. TECHNIQUE: Chest from 11/20/2022. COMPARISON: 10/28/2022. FINDINGS: Single view of the chest. There is a large hiatal hernia. Heart and pulmonary vasculature are normal. Sternotomy wires noted. There are no infiltrates or effusions. No pneumothorax. Rounded density in the right perihilar region is stable from previous. IMPRESSION: 1. Stable chest with large hiatal hernia noted. Dictated on workstation # [id number] Dict: 11/20/22 1832 Trans: 11/20/22 183 [id number] [id number] Interpreted by: KENDELL WALLACE MD Electronically signed by: Reviewed: Reviewed by Me (I reviewed the radiologist report at 1858) Diagonstic Imaging: Xray Plain Films/CT/US/NM/MRI: abdomen Comments [facility] [place] [place] NAME: FLY MURILLO [facility] REC#: [id number] PT STATUS: DEP ER : 1935 PHYSICIAN: ANDREA HUFFMAN MD ADMIT DATE: 11/20/22/ER FS Draft Date of Exam:11/20/22 ABDOMEN (KUB) 1 VIEW INDICATION: Constipation, syncope. COMPARISON: None available. TECHNIQUE: Single radiograph of the chest dated 11/20/2022. FINDINGS: Surgical clips are noted overlying the lower pelvis bilaterally. Small amount of gas and stool is noted throughout the colon. No abnormally dilated loops of small bowel. No differential air-fluid levels. No free air. No acute osseous abnormality. IMPRESSION: No acute abnormality with postsurgical and chronic changes as above. Dictated on workstation # [id number] Dict: 11/20/221852 Trans: 11/20/221856 [id number] Interpreted by: KAI GARCIA MD Electronically signed by: Reviewed: Reviewed by Me Diagonstic Imaging: CT Plain Films/CT/US/NM/MRI: head Comments NAME: FLY MURILLO [facility] REC#: [id number] PT STATUS: REG ER : 1935 PHYSICIAN: ANDREA HUFFMAN MD ADMIT DATE: 11/20/22/ER FS Draft Date of Exam:11/20/22 CT HEAD/CERVICAL SPINE WO PROCEDURE: CT head and CT cervical spine without contrast. TECHNIQUE: Multiple contiguous axial images were obtained through the brain and cervical spine without the use of intravenous contrast. Sagittal and coronal reformations through the cervical spine were then performed. Auto Exposure Controls were utilized during the CT exam to meet ALARA standards for radiation dose reduction. INDICATION: Syncopal episode, dizziness, headache and neck pain. EXAMINATION: CT brain and CT cervical spine, 11/20/2022. FINDINGS: CT BRAIN: Mild chronic ischemic changes noted in a periventricular and deep white matter distribution. Old focal areas of likely developing osseous of encephalomalacia seen within the anterior and posterior left parietal lobe and in the posterior right parietal lobe. No superimposed acute hemorrhage or infarct is seen. There is no mass, mass effect or midline shift. No hydrocephalus. Atherosclerotic disease noted. Sinuses and mastoid air cells unremarkable other than minimal partial opacification of the right mastoid air cells, age indeterminate. IMPRESSION: 1. Chronic findings with no superimposed acute intracranial process. 2. Mild age indeterminant partial opacification of the right mastoid air cells. CT CERVICAL SPINE: There is minimal grade 1 anterolisthesis at C3-C4 and C4-C5. Remaining alignment is maintained. No fracture is appreciated. Intervertebral disc space narrowing, spurring and sclerosis noted most pronounced at C5-C6 and C6-C7. No fracture is appreciated. There is multilevel bilateral facet hypertrophy. There is scarring and atelectasis in the visualized lung apices. The prevertebral soft tissues appear unremarkable for acute abnormality. IMPRESSION: 1. Multilevel diffuse degenerative findings with no acute osseous abnormality. Dictated on workstation # [id number] Dict: 11/20/22 1825 Trans: 11/20/221835 PJE [id number] Interpreted by: KENDELL WALLACE MD Electronically signed by: Reviewed: Reviewed by Me (I reviewed the radiologist report at 1836) Departure Impression Primary Impression: Syncope Qualified Codes: R55 - Syncope and collapse Additional Impressions: Constipation Qualified Codes: K59.00 - Constipation, unspecified Acute cystitis without hematuria Disposition: HOME, SELF-CARE Condition: Improved Departure-Patient Inst. Decision time for Depature: 18:40 Referrals: JULIA SIMON APRN (PCP) Primary Care Physician BLANCA SANTANA MD (Family) Primary Care Physician Patient Instructions: Urinary Tract Infection, Adult ED, Constipation, Adult ED, Fainting, Adult ED Add. Discharge Instructions: Take the full course of antibiotics until gone. Make sure you are drinking plenty of water and/or cranberry juice to help flush out your urine and stay hydrated. Check back with the clinic if having continued fatigue and not having improvement in your symptoms after the antibiotics have finished. Consider taking the Dulcolax and/or MiraLAX to help with constipation. When you strain to have a bowel movement or urinate you can drop your blood pressure and result in a fainting episode. All discharge instructions reviewed with patient and/or family. Voiced understanding. Scripts Nitrofurantoin Monohyd/M-Cryst (Macrobid 100 mg Capsule) 100 Mg Capsule 1 TAB PO BID for UTI for 5 Days, #10 CAP 0 Refills Prov: ANDREA HUFFMAN MD 11/20/22 ANDREA HUFFMAN MD November 20, 2022 18:04
[2022-11-20 18:06] LABS: BILIRUBIN,URINE 1+ (NEGATIVE); CLARITY,URINE CLOUDY; COLOR,URINE DARK YELLOW; GLUCOSE, URINE (UA) NEGATIVE (NEGATIVE); KETONES,URINE TRACE (NEGATIVE); LEUKOCYTE ESTERASE ,URINE 1+ (NEGATIVE); NITRITE,URINE POSITIVE (NEGATIVE); PROTEIN,URINE NEGATIVE (NEGATIVE)
[2022-11-20 18:06] LABS: PROTHROMBIN TIME PATIENT 13.2 SEC (12.2-14.7)
[2022-11-20 18:09] LABS: BACTERIA,URINE LARGE /HPF; WBC,URINE >100 /HPF
[2022-11-20 18:19] LABS: ALANINE AMINOTRANSFERASE 12 U/L (0-55); ALKALINE PHOSPHATASE 111 U/L (40-136); BILIRUBIN,TOTAL 0.3 MG/DL (0.1-1.0); BUN/CREATININE RATIO 19; CALCIUM 9.8 MG/DL (8.5-10.1); CARBON DIOXIDE 28 MMOL/L (21-32); CHLORIDE 95 MMOL/L (98-107); CREATININE SERUM 1.17 MG/DL (0.60-1.30); GFR ESTIMATED 46; GLUCOSE 87 MG/DL (70-105); MAGNESIUM 2.5 MG/DL (1.6-2.4); POTASSIUM 4.4 MMOL/L (3.6-5.0); SODIUM 135 MMOL/L (135-145)
[2022-11-20] MEDS ORDERED: NITROFURANTOIN 100 MG (MACROBID) CAPSULE PO STA (18:19)
[2022-11-20 18:20] LABS: ALBUMIN 4.6 GM/DL (3.2-4.5); LIPASE 45 U/L (8-78); TOTAL PROTEIN 7.6 GM/DL (6.4-8.2)
--- NOTE | 2022-11-20 18:36 | Diagnostic Imaging Report ---
INDICATION: Syncopal episode, dizziness, headache and neck pain. EXAMINATION: CT brain and CT cervical spine, 11/20/2022. All CT scans use one or more of the following dose optimizing techniques: automated exposure control, MA and/or KvP adjustment based on patient size and exam type or iterative reconstruction. FINDINGS: CT BRAIN: Mild chronic ischemic changes noted in a periventricular and deep white matter distribution. Old focal areas of likely developing osseous of encephalomalacia seen within the anterior and posterior left parietal lobe and in the posterior right parietal lobe. No superimposed acute hemorrhage or infarct is seen. There is no mass, mass effect or midline shift. No hydrocephalus. Atherosclerotic disease noted. Sinuses and mastoid air cells unremarkable other than minimal partial opacification of the right mastoid air cells, age indeterminate. IMPRESSION: 1. Chronic findings with no superimposed acute intracranial process. 2. Mild age indeterminant partial opacification of the right mastoid air cells. CT CERVICAL SPINE: There is minimal grade 1 anterolisthesis at C3-C4 and C4-C5. Remaining alignment is maintained. No fracture is appreciated. Intervertebral disc space narrowing, spurring and sclerosis noted most pronounced at C5-C6 and C6-C7. No fracture is appreciated. There is multilevel bilateral facet hypertrophy. There is scarring and atelectasis in the visualized lung apices. The prevertebral soft tissues appear unremarkable for acute abnormality. IMPRESSION: 1. Multilevel diffuse degenerative findings with no acute osseous abnormality. Dictated by: Dictated on workstation # [id number]
--- NOTE | 2022-11-20 18:37 | Diagnostic Imaging Report ---
INDICATION: Syncopal episode, epigastric pain. TECHNIQUE: Chest from 11/20/2022. COMPARISON: 10/28/2022. FINDINGS: Single view of the chest. There is a large hiatal hernia. Heart and pulmonary vasculature are normal. Sternotomy wires noted. There are no infiltrates or effusions. No pneumothorax. Rounded density in the right perihilar region is stable from previous. IMPRESSION: 1. Stable chest with large hiatal hernia noted. Dictated by: Dictated on workstation # [id number]
[2022-11-20] MEDS ORDERED: NITR-65 PO (18:40)
[2022-11-20 18:48] VITALS: BP 132/78
--- NOTE | 2022-11-20 18:58 | Diagnostic Imaging Report ---
INDICATION: Constipation, syncope. COMPARISON: None available. TECHNIQUE: Single radiograph of the chest dated 11/20/2022. FINDINGS: Surgical clips are noted overlying the lower pelvis bilaterally. Small amount of gas and stool is noted throughout the colon. No abnormally dilated loops of small bowel. No differential air-fluid levels. No free air. No acute osseous abnormality. IMPRESSION: No acute abnormality with postsurgical and chronic changes as above. Dictated by: Dictated on workstation # [id number]
== END 2022-11-20 18:50 | disposition home or self-care (01) ==
LOC: EDUNIT# 17:41 → ER FS 17:42
DX: R55 Syncope and collapse (principal); K59.00 Constipation, unspecified; N30.00 Acute cystitis without hematuria; R51.9 Headache, unspecified; M54.2 Cervicalgia; Z88.0 Allergy status to penicillin; Z88.2 Allergy status to sulfonamides
CPT/HCPCS: 36415; 70450; 71045; 72125; 74018; 80053; 81000; 83690; 83735; 83880; 84484; 85025; 85610; 85730; 87077; 87088; 87186; 93005; 93041